=== PATIENT | female | born 1940 | race Caucasian/White ===

== ENCOUNTER 2023-09-23 08:12 | Emergency (ER) | payer MEDICARE, OTHER ==
[~2023-09-23] VITALS: Ht 167.6 cm; Wt 63.5 kg
[~2023-09-23 08:12] MED LIST: ADVIL100 MG PO; ADVIL200 MG PO; ASPIRIN325 MG PO; CHANTIX0.5 MG PO; CHANTIX1 EACH PO; D3 + K2 DOTS 11 EACH PO; DILAUDID2 MG PO; DILAUDID4 MG PO; DILTIA XT180 MG PO; DILTIAZEM 24HR240 M1 PO; DILTIAZEM ER240 MG; DULCOLAX10 MG RC; MELOXICAM7.5 MG PO; METOPROLOL TART25 MG; MILK OF MA400 MG/5 M; MIRALAX119 GM PO; MIRALAX17 GM PO; MOBIC7.5 MG PO; NORCO 5-325 TA1 EACH PO; NORCO 7.5-3251 EACH PO; SENNA8.6 MG PO; TOPROL XL100 MG PO; TOPROL XL25 MG PO; TRAZODONE HCL100 MG; TRAZODONE HCL100 MG PO; VITAMIN D1000 UNIT PO; VITAMIN D31000 UNIT PO; XARELTO10 MG PO; ZOFRAN4 MG
[2023-09-23 08:46] LABS: PH, VENOUS 7.411 (7.31-7.41)
[2023-09-23 08:48] LABS: BASOPHILS 0.7 % (0-2); EOSINOPHILS 2.9 % (0-6); HEMATOCRIT 38.3 % (35.0-50.0); HEMOGLOBIN 13.2 g/dL (12.0-18.0); LYMPHOCYTES 19.7 % (24-44); MCHC 34.6 g/dl (30-36); MONOCYTES 8.5 % (0-12); NEUTROPHILS 68.2 % (39-80); PLATELET COUNT 223 K/uL (140-440); RBC 3.68 M/ul (4.3-5.7)
[2023-09-23 09:28] LABS: ALBUMIN 3.8 g/dL (3.4-5.0); ANION GAP 14.7 (7-21); BILIRUBIN, TOTAL 0.7 ng/dL (0.2-1.0); BUN/CREATININE RATIO 9.75 (6.0-28.6); CALCIUM 9.1 mg/dL (8.5-10.1); CREATININE, SERUM 1.23 mg/dL (0.55-1.02); MAGNESIUM 1.6 mg/dL (1.8-2.4); POTASSIUM 3.7 mmol/L (3.5-5.1); PROTEIN, TOTAL 7.6 g/dL (6.4-8.2)
[2023-09-23 09:34] LABS: INFLUENZA B NAA NEGATIVE (NEGATIVE); RESPIRATORY SYNCYTIAL VIR NAA NEGATIVE (NEGATIVE)
[2023-09-23 13:40] VITALS: BP 114/72
--- NOTE | 2023-09-23 17:57 | EKG ---
[facility] [address] [facility] [place] [address] Signed Normal sinus rhythm Inferior infarct , age undetermined Abnormal ECG When compared with ECG of 23-SEP-2023 08:42, (Unconfirmed) premature ventricular complexes are no longer present Inferior infarct is now present Confirmed by CHRISTIANO HERNANDEZ MD ([id number]) on 09/23/2023 5:57:32 PM Electronically Signed By: CHRISTIANO HERNANDEZ 09/23/23 1757 PATIENT NAME: MARY CALLE Electrocardiogram DATE OF : 42 PHYSICIAN: CHRISTIANO HERNANDEZ REPORT #: [id number] REPORT IS CONFIDENTIAL AND NOT TO BE RELEASED WITHOUT AUTHORIZATION
--- NOTE | 2023-09-23 17:57 | EKG ---
[facility] [address] [facility] [place] [address] Signed Sinus rhythm with occasional premature ventricular complexes ST depression, consider subendocardial injury Nonspecific T wave abnormality Prolonged QT Abnormal ECG No previous ECGs available Confirmed by CHRISTIANO HRENANDEZ MD ([id number]) on 09/23/2023 5:57:21 PM Electronically Signed By: CHRISTIANO HERNANDEZ 09/23/23 1757 PATIENT NAME: MARY CALLE Electrocardiogram DATE OF : 42 PHYSICIAN: CHRISTIANO HERNANDEZ REPORT #: [id number] REPORT IS CONFIDENTIAL AND NOT TO BE RELEASED WITHOUT AUTHORIZATION
== END 2023-09-23 13:40 | disposition short-term general hospital (02) ==
LOC: ED 08:12
PROVIDERS: Emergency Medicine
DX: I21.4 Non-ST elevation (NSTEMI) myocardial infarction (principal); I11.0 Hypertensive heart disease with heart failure; I50.9 Heart failure, unspecified; F17.200 Nicotine dependence, unspecified, uncomplicated; Z88.8 Allergy status to other drugs, medicaments and biological substances; Z88.5 Allergy status to narcotic agent; Z79.899 Other long term (current) drug therapy; Z20.822 Contact with and (suspected) exposure to COVID-19
CPT/HCPCS: 36415; 71045; 71260; 80053; 82803; 83735; 83880; 84484; 85025; 85379; 87502; 93005; 93010; 99285-25; C9803; J1940; J3475; U0002

== ENCOUNTER 2025-05-07 07:30 | Inpatient (IN) | payer MEDICARE, OTHER ==
[~2025-05-07] VITALS: Ht 167.6 cm
[2025-05-07] MEDS ORDERED: ondansetron HCL 4 MG/2 ML VIAL IV ONE (08:00)
[2025-05-07] MEDS ORDERED: HYDROmorphone HCL 1 MG/ML SYR IV ONE (08:00)
[2025-05-07 08:11] LABS: BASOPHILS 0.4 % (0.1-1.2); EOSINOPHILS 1.6 % (0.7-5.8); HEMATOCRIT 34.9 % (34.1-44.9); HEMOGLOBIN 12.4 g/dL (11.2-15.7); LYMPHOCYTES 23.6 % (19.3-51.7); MCH 35.4 PG (25.6-32.2); MCHC 35.5 g/dL (32.2-35.5); MCV 99.7 fL (79.4-94.8); MONOCYTES 13.8 % (4.7-12.5); NEUTROPHILS 60.4 % (34.0-71.1); PLATELET COUNT 219 K/uL (182-369)
[2025-05-07] MEDS ORDERED: CLOPIDOGREL75 MG PO (08:19)
[2025-05-07] MEDS ORDERED: AMLODIPINE BESYL5 MG PO (08:19)
[2025-05-07] MEDS ORDERED: ATORVASTATIN CA40 MG PO (08:19)
[2025-05-07] MEDS ORDERED: METOPROLOL SUCC25 MG PO (08:19)
[2025-05-07 08:28] LABS: ALBUMIN 3.8 g/dL (3.4-5.0); ALBUMIN/GLOBULIN RATIO 0.97 (1.1-2.4); ANION GAP 11.2 (7-21); BUN/CREATININE RATIO 13.07 (6.0-28.6); CALCIUM 9.2 mg/dL (8.5-10.1); CREATININE, SERUM 1.3 mg/dL (0.55-1.02); POTASSIUM 4.2 mmol/L (3.5-5.1); PROTEIN, TOTAL 7.7 g/dL (6.4-8.2)
[2025-05-07] MEDS ORDERED: ACETAMINOPHEN 325 MG TAB PO PRN (11:45)
[2025-05-07] MEDS ORDERED: SODIUM CHLORIDE 0.9% 1,000 ML IV SCH (11:45)
[2025-05-07] MEDS ORDERED: ondansetron HCL 4 MG/2 ML VIAL IV PRN (11:45)
[2025-05-07] MEDS ORDERED: PHARMACY RENAL DOSE ADJUSTMENT 1 DOSE MISC PO SCH (12:00)
[2025-05-07] MEDS ORDERED: OXYCODONE HCL 5 MG TAB PO PRN (12:00)
--- NOTE | 2025-05-07 12:22 | EKG ---
[facility] [address] [facility] [place] [address] Signed Normal sinus rhythm Normal ECG When compared with ECG of 23-SEP-2023 11:34, Criteria for Inferior infarct are no longer present Non-specific change in ST segment in Anterior leads T wave inversion no longer evident in Inferior leads Nonspecific T wave abnormality, improved in Anterolateral leads Confirmed by Guerline Oquendo MD () on 05/07/2025 12:22:31 PM Electronically Signed By: GUERLINE OQUENDO MD 05/07/25 1222 PATIENT NAME: MARY CALLE Electrocardiogram DATE OF : 42 PHYSICIAN: GUERLINE OQUENDO MD REPORT #: [id number] REPORT IS CONFIDENTIAL AND NOT TO BE RELEASED WITHOUT AUTHORIZATION
[2025-05-07 12:43] VITALS: BP 165/41
[2025-05-07] MEDS ORDERED: KETOROLAC TROMETHAMINE 15 MG/ML VIAL IV PRN (12:45)
--- NOTE | 2025-05-07 13:19 | NUR ---
PT TO [facility] VIA [facility] STAFF TRANSFER TO BED. PT ORIENTED TO THE ROOM, BED CONTROLS, AND ROUTINE. DR OQUENDO IN TO DISCUSS PAIN CONTROL PLAN ALL QUESTIONS ANSWERED. LUNCH TRAY PROVIDED PT EATS HEARTILY AGREES SHE IS SATISFIED AND COMFORTABLE AT THIS TIME. CALL LIGHT AND FRESH H20 IN REACH.
--- NOTE | 2025-05-07 13:26 | NUR ---
I/S INTRODUCED SCD IN PLACE
--- NOTE | 2025-05-07 13:31 | NUR ---
UR CLINICAL REVIEW: 2 MN FOR VERSALUS-PER HOT CELL TECHNICIAN MEETS OBS FOR PAIN MANAGEMENT FOR RIB FX MEDICARE OBS 05/07/25 @ 1148 ORDER MATCHES REG NO AUTH REQUIRED PER MEDICARE GUIDELINES DISCHARGE DISPO PENDING FURTHER PT/OT EVAL 05/08/25
[2025-05-07] MEDS ORDERED: HYDROmorphone HCL 2 MG TAB PO PRN (13:45)
--- NOTE | 2025-05-07 13:46 | NUR ---
INTO SEE PATIENT. PERSONAL HEALTH INFORMATION REVIEWED. PATIENT LIVES IN A HOUSE WITH SON AND DAUGHTER IN [place]. 5 STEPS INTO THE HOME AND IT IS A SPLIT LEVEL HOME. PATIENT DENIES ANY TROUBLE DOING THE STEPS. SHE USES A CANE AT BASELINE. NO OXYGEN OR CPAP AT HOME. DOES NOT DRIVE. FAMILY TO PICK HER UP WHEN SHES MEDICALLY CLEARED. DENIES ANY DIFFCULTY PAYING UTLITIES OR OBTAINING FOOD. NO FUTHER CM NEEDS AT THIS TIME.
--- NOTE | 2025-05-07 14:09 | NUR ---
PT REPORTED TO HAVE C/O PAIN. THIS RN PROVIDED 1MG DILAUDID PO FOR PAIN RELIEF. PT STATED REPEATEDLY "I DON'T KNOW" TO QUESTION REGARDING ACCEPTABLE LEVEL OF PAIN AND CURRENT PAIN RATING.
--- NOTE | 2025-05-07 14:46 | NUR ---
PT RESTING EYES CLOSED
[2025-05-07 14:47] VITALS: BP 165/41
--- NOTE | 2025-05-07 14:52 | NUR ---
P/T IN TO WORK WITH PT.
--- NOTE | 2025-05-07 15:09 | NUR ---
PT NOT AVAILABLE FOR VISIT. PROVIDED PRAYER.
[2025-05-07] MEDS ORDERED: ALBUTEROL SULFATE 0.083% 3 ML VIAL INH PRN (16:00)
--- NOTE | 2025-05-07 16:07 | NUR ---
PT REQUESTS TO MOVE FROM CHAIR TO THE BED. DOES NOT ACCOMPLISH NWB WELL, EVEN USING THE WALKER. PT ASSISTED TO GET COMFORTABLE. PAIN REGIMEN DISCUSSED PT NOTIFIED HER OF WHEN NEXT MED IS AVAILABLE. SHE IS UNABLE TO READ THE BOARD WITH WRITTEN REMINDER. CALL LIGHT AND NEEDED ITEMS IN REACH
[2025-05-07] MEDS ORDERED: PRESERVISION A1 EAC3 PO (16:10)
[2025-05-07] MEDS ORDERED: ADULT LOW DOSE81 MG PO (16:10)
--- NOTE | 2025-05-07 16:55 | NUR ---
medications reconciled using pharmacy records and patient interview
--- NOTE | 2025-05-07 17:25 | NUR ---
PT REPOSITIONED UP IN BED FOR EVENING MEAL. REVIEWED WITH HER WHEN NEXT PAIN MED IS AVAILABLE. SHE AGREES SHE IS PRETTY COMFORTABLE UNTIL SHE HAS TO MOVE THEN THE PAIN IS TERRIBLE.
[2025-05-07 18:08] VITALS: BP 141/51
--- NOTE | 2025-05-07 18:10 | NUR ---
PATIENT IN BED AT THIS TIME. VITALS AND I&O'S DONE AND CHARTED. CALL LIGHT IN REACH. NO FURTHER NEEDS AT THIS TIME.
[2025-05-07 18:47] VITALS: BP 141/51
--- NOTE | 2025-05-07 19:24 | NUR ---
REPORT RECEIVED FROM DAY SHIFT RN. PT LYING IN BED ALERT AND ORIENTED. DENIES NEEDS. WHITE BOARD UPDATED. CALL LIGHT IN REACH.
[2025-05-07] MEDS ORDERED: MELATONIN 3 MG TAB PO PRN (21:00)
[2025-05-07] MEDS ORDERED: SENNOSIDES/DOCUSATE 1 EA TAB PO SCH (21:00)
--- NOTE | 2025-05-07 21:00 | NUR ---
IV PUMP ALARMING, IVF INFUSION COMPLETE. IV SL WNL, GOOD BLOOD RETURN NOTED. 1PA WITH FWW TO PIVOT TO BSC FOR VOID. PROPERTIES SUPERVISOR SINTA IN ROOM. pt RATES PAIN 7-8/10 IN LEFT FOOT. PRIMARY RNS UPDATED.
[2025-05-07 21:05] VITALS: BP 145/66
[2025-05-07 21:08] VITALS: BP 145/66
--- NOTE | 2025-05-07 21:22 | NUR ---
EVENING ASSESSMENT COMPLETE. SCHEDULED MEDS ADMIN PER EMAR. PT REPORTS LEFT RIB PAIN 10/10 WITH MOVEMENT AND 0/10 AT REST. PRN FOR PAIN ADMIN PER EMAR. LUNGS DIMINISHED THROUGHOUT. SpO2 LOW 90'S. 2L/NC IN PLACE. LEFT FOOT IN BOOT. CMS INTACT. SCD IN PLACE ON RLE. PT DENIES QUESTIONS OR CONCERNS. CALL LIGHT IN REACH. BED ALARM FOR SAFETY.
[2025-05-07 23:02] LABS: ANION GAP 9.1 (7-21); BUN/CREATININE RATIO 14.04 (6.0-28.6); CALCIUM 8.3 mg/dL (8.5-10.1); CREATININE, SERUM 1.21 mg/dL (0.55-1.02); POTASSIUM 4.1 mmol/L (3.5-5.1)
--- NOTE | 2025-05-07 23:19 | NUR ---
PT RESTING IN BED WITH EYES CLOSED. RESPIRATIONS EVEN. SpO2 94% WITH 2L/NC IN PLACE. HR 50'S.
[2025-05-08] VITALS (11 sets, daily range): BP systolic 110–154; BP diastolic 31–66
--- NOTE | 2025-05-08 00:48 | NUR ---
CALL LIGHT ANSWERED. PT UP TO BSC WITH 1PA AND FWW. BACK TO BED. REPORTS LEFT SIDE PAIN 07/08. PRN FOR PAIN ADMIN PER EMAR. VS AND I&O OBTAINED. NO FURTHER NEEDS. CALL LIGHT IN REACH.
--- NOTE | 2025-05-08 02:40 | NUR ---
PT RESTING IN BED WITH EYES CLOSED. RESPIRATIONS EVEN. CALL LIGHT IN REACH.
--- NOTE | 2025-05-08 03:59 | NUR ---
PT AWAKE IN BED. NO C/O PAIN AT THIS TIME. SpO2 96% ON 2L/NC. HR 50'S. NO NEEDS. CALL LIGHT IN REACH.
[2025-05-08 05:20] LABS: BASOPHILS 0.3 % (0.1-1.2); EOSINOPHILS 2.5 % (0.7-5.8); HEMATOCRIT 29.5 % (34.1-44.9); HEMOGLOBIN 10.1 g/dL (11.2-15.7); LYMPHOCYTES 21.9 % (19.3-51.7); MCH 35.4 PG (25.6-32.2); MCHC 34.2 g/dL (32.2-35.5); MCV 103.5 fL (79.4-94.8); MONOCYTES 12.6 % (4.7-12.5); NEUTROPHILS 62.5 % (34.0-71.1); PLATELET COUNT 186 K/uL (182-369); RBC 2.85 M/uL (3.93-5.22)
[2025-05-08 05:38] LABS: ANION GAP 10.2 (7-21); BILIRUBIN, TOTAL 0.7 mg/dL (0.2-1.0); CALCIUM 8.5 mg/dL (8.5-10.1); CREATININE, SERUM 1.25 mg/dL (0.55-1.02); MAGNESIUM 1.8 mg/dL (1.8-2.4); PHOSPHORUS, INORGANIC 4.5 mg/dL (2.5-4.9); POTASSIUM 4.2 mmol/L (3.5-5.1)
--- NOTE | 2025-05-08 05:38 | NUR ---
LAB IN FOR MORNING DRAW. PT UP TO BSC WITH 1PA AND FWW TO VOID. GAIT STEADY. BACK TO BED, ROSIBEL FAIR. PT REPORTS LEFT RIB PAIN 05/08. PRN FOR PAIN ADMIN PER EMAR. VS AND I&O OBTAINED. NO FURTHER NEEDS. CALL LIGHT IN REACH.
--- NOTE | 2025-05-08 07:38 | NUR ---
Patient awake resting in bed, alert to self and place, no acute distress. Patient reports tolerable pain at rest. Patient is on 2L oxygen per nc, respirations non labored, sp02 95%. Patient denies needs, personal supplies and call light within reach.
[2025-05-08] MEDS ORDERED: SODIUM CHLORIDE 0.9% 1,000 ML IV SCH (07:45)
--- NOTE | 2025-05-08 09:38 | NUR ---
SPOKE WITH PATIENT REGARD PT RECOMMENDATION FOR SNF. STATES SHE IS AGREEABLE TO SNF. PATIENT CHOICES FOR SNF PROVIDED. STATES SHE HAS PREVIOUSLY BEEN TO [facility] AND PREFERS TO RETURN TO [facility] FOR [facility]F. DISCUSSED NEED FOR INPATIENT STAY FOR 3 MIDNIGHTS PRIOR TO DC. VERBALIZES UNDERSTANDING. UPDATED DR. OQUENDO ABOUT PATIENT AGREEANCE FOR SNF.
--- NOTE | 2025-05-08 09:50 | NUR ---
Admin 1mg dilaudid po at this time for reported 7/10 left rib pain.
--- NOTE | 2025-05-08 09:54 | NUR ---
CLINICALS FAXED TO [facility].
[2025-05-08] MEDS ORDERED: LIDOCAINE HCL 4% 1 EACH PATCH TD SCH (10:16)
--- NOTE | 2025-05-08 11:45 | NUR ---
Patient resting in bed, eyes closed, respirations even/non labored. SP02 95% on 2L oxygen per nc.
[2025-05-08] MEDS ORDERED: ALBUTEROL/IPRATROPIUM 3 ML NEB INH SCH (12:00)
--- NOTE | 2025-05-08 12:54 | NUR ---
Patient up to void, approx 200ml concentrated urine noted. Patient reports 6/10 left hip pain. Toradol 15mg iv admin at this time. Patient's oxygen is 93% on 2L oxygen. Patient denies sob, respirations non labored.
[2025-05-08 14:10] LABS: BUN/CREATININE RATIO 14.28 (6.0-28.6); CALCIUM 8.3 mg/dL (8.5-10.1); CREATININE, SERUM 1.19 mg/dL (0.55-1.02)
--- NOTE | 2025-05-08 17:48 | NUR ---
Patient in bed resting, eyes closed, respirations non labored. SP02 95% on 2L oxygen per nc, respirations non labored. Patient denies needs, call light within reach.
--- NOTE | 2025-05-08 18:16 | NUR ---
Admin dilaudid 1mg po for 7/10 left rib pain. SPO2 93% on 2L oxygen per nc, respirations non labored.
--- NOTE | 2025-05-08 19:17 | NUR ---
REPORT RECEIVED FROM DAY SHIFT RN. PT LYING IN BED ALERT AND ORIENTED. DENIES NEEDS. WHITE BOARD UPDATED. CALL LIGHT IN REACH.
[2025-05-08] MEDS ORDERED: LIDOCAINE PATCH REMOVAL 1 EA TD SCH (21:00)
--- NOTE | 2025-05-08 21:54 | NUR ---
EVENING ASSESSMENT COMPLETE. SCHEDULED MEDS ADMIN PER EMAR. PT REPORTS LEFT RIB PAIN 06/07. PRN FOR PAIN ADMIN PER EMAR. PT UP TO BSC WITH FWW AND 1PA TO VOID. PT ABLE TO DO OWN LIN CARE. BACK TO BED, ROSIBEL FAIR. PT REPORTS BILAT LEFT HEEL PAIN. WALKING BOOT REMOVED, PENCIL ERASER SIZE REDDENED AREA NOTED ON LEFT HEEL. AREA BLANCHABLE. ALEVYN PLACED. BOOT BACK IN PLACE. HEELS FLOATED. SCD TO RLE. VS AND I&O OBTAINED. PT DENIES FURTHER NEEDS. CALL LIGHT IN REACH.
[2025-05-09] VITALS (9 sets, daily range): BP systolic 123–160; BP diastolic 40–61
--- NOTE | 2025-05-09 00:01 | NUR ---
PT RESTING IN BED WITH EYES CLOSED. RESPIRATIONS EVEN. CALL LIGHT IN REACH.
--- NOTE | 2025-05-09 02:08 | NUR ---
PT UP TO BSC WITH DRIVER TRAINEE ASSIST. BACK TO BED. REPORTS LEFT RIB PAIN/LEFT HEEL PAIN 05/08. PRN FOR PAIN ADMIN PER EMAR. NO FURTHER NEEDS.
--- NOTE | 2025-05-09 03:47 | NUR ---
PT AWAKE IN BED. SpO2 99% ON 2L/NC. NO C/O PAIN AT THIS TIME. DENIES NEEDS. CALL LIGHT IN REACH.
[2025-05-09 05:36] LABS: BASOPHILS 0.2 % (0.1-1.2); EOSINOPHILS 0.9 % (0.7-5.8); HEMATOCRIT 30.5 % (34.1-44.9); HEMOGLOBIN 10.5 g/dL (11.2-15.7); LYMPHOCYTES 15.9 % (19.3-51.7); MCH 35.7 PG (25.6-32.2); MCHC 34.4 g/dL (32.2-35.5); MCV 103.7 fL (79.4-94.8); MONOCYTES 10.2 % (4.7-12.5); NEUTROPHILS 72.5 % (34.0-71.1); PLATELET COUNT 203 K/uL (182-369); RBC 2.94 M/uL (3.93-5.22)
[2025-05-09 05:50] LABS: ANION GAP 14.2 (7-21); BUN/CREATININE RATIO 12.5 (6.0-28.6); CALCIUM 8.9 mg/dL (8.5-10.1); CREATININE, SERUM 1.12 mg/dL (0.55-1.02); POTASSIUM 4.2 mmol/L (3.5-5.1)
--- NOTE | 2025-05-09 06:57 | NUR ---
PT REPORTS LEFT SIDE PAIN 05/08. PRN FOR PAIN ADMIN PER EMAR. NO FURTHER NEEDS. CALL LIGHT IN REACH.
--- NOTE | 2025-05-09 08:28 | NUR ---
HOURLY ROUNDING. PATIENT IS IN BED. ASKED PATIENT ABOUT SHOWERING TODAY. NURSE HAS BEEN NOTIFIED. NO REQUEST FROM PATIENT AT THIS TIME BOARD HAS BEEN UPDATED AND CALL LIGHT HAS BEEN PLACED WITHIN REACH
[2025-05-09] MEDS ORDERED: POLYETHYLENE GLYCOL 3350 1 PACKET PO SCH (09:00)
--- NOTE | 2025-05-09 09:00 | NUR ---
Spoke with Kristy. Discussed plan for her to go to a SNF. She is upset and stating she doesn't want to go. She has been at [facility] in the past and did not like it. I let her know I can send her to a different SNF out of town. She declines this as she feels this will be a burden to her children. She again is stating she does not want to go to a SNF. We then discussed if she is able to get out of bed. She denies. She also denies having money to pay for a CG. She knows she is unable to care for herself. Son works. Dr. Kramer in to assess pt and confirms she has several fractured ribs and is not able to care for herself. Pt is also not happy with the boot on her foot. Dr. Kramer let her know he will contact Dr. Macdonald to check if she can have it off intermitently. Pt prefers to go to [facility] after her visit with Dr. Kramer. She will need 2 more night IP stay to meet criteria.
[2025-05-09] MEDS ORDERED: ATORVASTATIN 40 MG TAB PO SCH (09:34)
[2025-05-09] MEDS ORDERED: CLOPIDOGREL BISULFATE 75 MG TAB PO SCH (09:34)
[2025-05-09] MEDS ORDERED: ASPIRIN 81 MG TABEC PO SCH (09:34)
[2025-05-09] MEDS ORDERED: METOPROLOL SUCCINATE 25 MG TABCR PO SCH (09:35)
[2025-05-09] MEDS ORDERED: AMLODIPINE BESYLATE 5 MG TAB PO SCH (09:35)
[2025-05-09] MEDS ORDERED: ENOXAPARIN SODIUM 40 MG/0.4 ML SYR SUB-Q SCH (09:41)
--- NOTE | 2025-05-09 10:00 | NUR ---
Per Dr. Kramer, PT needs to assess patient's boot for best fit.
--- NOTE | 2025-05-09 10:11 | NUR ---
VISITED DURING SPIRITUAL CARE ROUNDS. PT VISIBLY UNCOMFORTABLE, TREMBLING LIPS, SHAKEY BREATH. NORMA MCCLURE IN ROOM. SHORT VISIT TO OFFER STAMP MAKER VISIT. PT DECLINED OFFER OF STAMP MAKER VISIT, STATING SHE HAS "FALLEN AWAY" FROM THE [facility]. HALVER MACHINE OPERATOR PROVIDED SUPPORTIVE PRESENCE, PRAYER.
--- NOTE | 2025-05-09 10:14 | NUR ---
Patient awake sitting up in bed, alert and oriented x3, no acute distress. Patient reports increased pain with coughing, pt instructed to splint as need, she is able to demonstrate this independently. Patient is on 2L oxygen per nc, respiration non labored, sp02 93%. Patient has a boot to left foot, cms intact to LLE. Patient close to RN station, call light within reach.
--- NOTE | 2025-05-09 10:30 | NUR ---
HOURLY ROUNDING. PATIENT IS SITTING UP IN BED. NO NEEDS AT THIS TIME. DECLINED WARM BLANKET
[2025-05-09] MEDS ORDERED: IBUPROFEN 400 MG TAB PO PRN (11:00)
--- NOTE | 2025-05-09 11:41 | NUR ---
HOURLY [id number]. PATIENT IS IN RECLINER, LINENS HAVE BEEN CHANGED AND WARM BLANKET WAS GIVEN. PATIENT WAS GIVEN A CHOCOLATE ENSURE. ML OF ENSURE HAS BEEN DOCUMENTED ON OUTPUT SHEET. CALL LIGHT PLACED WITHIN REACH
--- NOTE | 2025-05-09 11:45 | NUR ---
Per Pt, soft cushion placed under the inside foam in boot to prevent rubbing. Per their reccomendation, pt may benefit from bigger boot as her toes are near end of boot. Patient reports boot is tolerable and fit feels good.
--- NOTE | 2025-05-09 12:54 | NUR ---
Patient resting in bed, alert and oriented x3, no acute distress. Patient reports 7/10 left rib pain. Ibuprofen 400mg po and dilaudid 1mg po admin at this time. Patient is on 2L oxygen per nc, sp02 94%, respirations non labored. Patient denies needs at this time. Call light within reach.
--- NOTE | 2025-05-09 14:01 | NUR ---
Matilda Conway at [facility] and asked if she received the chart and if they will have a bed open by Wednesday.
--- NOTE | 2025-05-09 14:12 | NUR ---
I contacted [facility], they are checking if they will have a bed open on Wed. and will let me know.
--- NOTE | 2025-05-09 16:06 | NUR ---
Boot to left foot replaced for best fit per PT recommendation. Medium sized boot replaced for a large size. Patient's toes are no longer rubbing. Patient gave verbal consent to sign form for boot. Pt is visually impaired. .
--- NOTE | 2025-05-09 16:23 | NUR ---
Patient reports he is feeling well, no acute distress. Patient reports 3/10 abdominal pain. Patient provided with a snack at this time. Vital signs stable.
--- NOTE | 2025-05-09 17:56 | NUR ---
HOURLY ROUNDING. PATIENT REFUSED SHOWER AFTER BEING OFFERED I SET UP TOWELS AND SUPLLIED NEEDED FOR THE SHOWER. CALL LIGHT HAS BEEN PLACED WITHIN REACH. NO REQUEST FROM PATIENT AT THIS TIME
--- NOTE | 2025-05-09 19:41 | NUR ---
REPORT RECEIVED FROM DIANNE RN. PATIENT RESTING IN BED WITH FAMILY AT BEDSIDE. CPOX AT BEDSIDE, PATIENT BOOSTED IN BED WITH ASSISTANCE OF AMER[employer]DIAN STUDIES PROFESSOR. PATIENT DENIES FURTHER NEEDS, LEFT LEG IN BOOT. CALL LIGHT IN REACH.
--- NOTE | 2025-05-09 19:48 | NUR ---
PT NEEDED TO USE BATHROOM. WORKERS' COMPENSATION MAGISTRATE 1PA WITH FWW TO BSC. PT VOIDED AND ASSISTED BACK TO BED. PT STATES NO FURTHER NEEDS AT THIS TIME. CALL LIGHT WITHIN REACH.
[2025-05-09] MEDS ORDERED: TRAZODONE HCL 100 MG TAB PO SCH (21:00)
--- NOTE | 2025-05-09 21:14 | NUR ---
SAUTE CHEF OBTAINED VITALS AND I&O. PT STATES NO NEEDS AT THIS TIME. CALL LIGHT WITHIN REACH.
--- NOTE | 2025-05-09 21:30 | NUR ---
PATIENT ASSESSMENT COMPLETE. SCHEDULED MEDS ADMINISTERED PER ORDER. PATIENT REPORT 4/10 PAIN AT THIS TIME. BOOT IN PLACE ON LEFT LEG. SHE DENIES ANY NEEDS, CALL LIGHT IN REACH.
--- NOTE | 2025-05-09 23:20 | NUR ---
ROUNDED ON PATIENT, PATIENT WOKE TO RN ENTERING ROOM, REPORTING THAT SHE HAS BEEN NAUSEOUS. PATIENT OFFERED PRN NAUSEA MEDICATION WHICH SHE DECLINED AT THIS TIME. SHE DENIES FURTHER NEEDS, CALL LIGHT IN REACH
[2025-05-10] VITALS (9 sets, daily range): BP systolic 112–136; BP diastolic 43–56
--- NOTE | 2025-05-10 03:29 | NUR ---
CALL LIGHT ANSWERED. PATIENT UP TO BSC USING FWW AND X1 ASSIST. VOIDED, AND BACK TO BED WITHOUT DIFFICULTY. BOOSTED AND REPOSITIONED IN BED. DENIES ANY OTHER NEEDS AT THIS TIME. CALL LIGHT IN REACH
--- NOTE | 2025-05-10 05:42 | NUR ---
SUEDING AND BUFFING MACHINE OPERATOR OBTAINED VITALS AND I&O. PT STATES NO NEEDS AT THIS TIME. CALL LIGHT WITHIN REACH.
[2025-05-10 05:43] LABS: BASOPHILS 0.2 % (0.1-1.2); EOSINOPHILS 1.1 % (0.7-5.8); HEMATOCRIT 29.6 % (34.1-44.9); HEMOGLOBIN 10.2 g/dL (11.2-15.7); LYMPHOCYTES 13.1 % (19.3-51.7); MCH 35.7 PG (25.6-32.2); MCHC 34.5 g/dL (32.2-35.5); MCV 103.5 fL (79.4-94.8); MONOCYTES 13.6 % (4.7-12.5); NEUTROPHILS 71.6 % (34.0-71.1); PLATELET COUNT 209 K/uL (182-369); RBC 2.86 M/uL (3.93-5.22)
[2025-05-10 05:54] LABS: ANION GAP 11.3 (7-21); BUN/CREATININE RATIO 14.42 (6.0-28.6); CALCIUM 8.9 mg/dL (8.5-10.1); CREATININE, SERUM 1.04 mg/dL (0.55-1.02); POTASSIUM 4.3 mmol/L (3.5-5.1)
--- NOTE | 2025-05-10 07:09 | NUR ---
REPORT RECEIVED FROM MEDICAL CLAIMS REPRESENTATIVE RN FIOR. PATIENT IS LYING IN BED WITH HOB ELEVATED. PATIENT WITH EYES OPEN AND RESPIRATIONS ARE EVEN AND UNLABORED. PATIENT IS REQUESTING PAIN MEDICATION AT THIS TIME. PATIENT STATED NO FURTHER NEEDS AT THIS TIME. CALL LIGHT AND PERSONAL BELONGINGS ARE WITHIN REACH.
--- NOTE | 2025-05-10 07:55 | NUR ---
0900 MEDICATIONS ADMINISTERED PER THE EMAR. PATIENT REPOSITIONED IN BED. HOB ELEVATED. PATIENT REMAINS ON 1 L NC WITH THE CPOX AT BEDSIDE. PATIENT STATED NO FURTHER NEEDS AT THIS TIME. CALL LIGHT AND PERSONAL BELONGINGS ARE WITHIN REACH.
--- NOTE | 2025-05-10 08:49 | NUR ---
PATIENT IS LYING IN BED WITH HOB ELEVATED. TEODORO BRENNAN IS IN THE ROOM AT THIS TIME. PATIENT REMAINS ON ROOM AIR AT 89%. PATIENT WITH THE CPOX AT BEDSIDE. PATIENT STATED NO FURTHER NEEDS AT THIS TIME. CALL LIGHT AND PERSONAL BELONGINGS ARE WITHIN REACH.
--- NOTE | 2025-05-10 08:52 | NUR ---
HOURLY ROUNDING. PATIENT REPORTED NOT HAVING AN APETITE. PATIENT REFUSED SHOWER WHEN OFFERED. ENSURE WAS GIVEN TO PATIENT. CALL LIGHT PLACED WITHIN REACH. BOARD HAS BEEN UPDATED
[2025-05-10] MEDS ORDERED: CYANOCOBALAMIN 1,000 MCG TAB PO SCH (09:00)
--- NOTE | 2025-05-10 09:45 | NUR ---
PATIENT IS LYING IN BED WITH HOB ELEVATED. PATIENT IS ALERT AND ORIENTED. LAST BM WAS 05/07/25. BOOT IN PLACE OF THE LEFT FOOT. FULL ASSESSMENT COMPLETE AND DOCUMENTED IN THE CHART. PATIENT IS A SBA WITH THE FWW. PT AND OT ARE ORDERED. NON-WEIGHT BEARING STATUS. MURMUR HEARD ON CARDIAC AUSCULTATION. RADIAL AND PEDAL PULSES ARE STRONG BILATERALLY. CAPILLARY REFILL IN THE UPPER AND LOWER EXTREMITIES IS LESS THAN 3 SECONDS. NO EDEMA NOTED. SENSATION INTACT WITH NO COMPLAINTS OF NUMBNESS OR TINGLING. PATIENT WITH FLAT AFFECT. PATIENT IS ON A REGULAR DIET WITH ACTIVE BOWEL TONES IN ALL FOUR QUADRANTS. IV SITE FLUSHED WITH 10 ML NORMAL SALINE AND IS SALINE LOCKED. IV DRESSING IS CLEAN, DRY, AND INTACT. PATIENT IS ON ROOM AIR WITH THE CPOX AT BEDSIDE. PATIENT REPORTS INCREASED PAIN WITH DEEP BREATHS. LUNG SOUNDS ARE CLEAR THROUGHOUT. PATENT WITH NO COMPLAINTS OF SOB. SCATTERED BRUISING NOTED. SCAB NOTED TO THE LEFT ELBOW. ALEVYN ON THE LEFT GREAT TOE NOTED AND IS SLEAN, DRY, AND INTACT. PATIENT PAIN IS A 2/10 ON THE LEFT SIDE OF RIBS. PATIENT UNABLE TO RATE PAIN FROM 0-10 BUT REPORTS IT IS BETTER THAN THIS MORNING. PATIENT STATED NO FURTHER NEEDS AT THIS TIME. CALL LIGHT AND PERSONAL BELONGINGS ARE WITHIN REACH.
--- NOTE | 2025-05-10 10:26 | NUR ---
PATIENT IS LYING IN BED WITH HOB ELEVATED. PATIENT WITH EYES CLOSED AND RESPIRATIONS ARE EVEN AND UNLABORED. CALL LIGHT AND PERSONAL BELONGINGS ARE WITHIN REACH.
--- NOTE | 2025-05-10 10:50 | NUR ---
Spoke with Kristy. She plans on dc to [facility] tomorrow. She cont. to have painful ribs and difficulty moving. She would like to go per van transport, but would like me to call her son. He gets off work this afternoon.
--- NOTE | 2025-05-10 11:03 | NUR ---
PATIENT IS LYING IN BED WITH HOB ELEVATED. PATIENT RATED PAIN 5/10 IN THE LEFT RIBS. PATIENT IS REQUESTING SOMETHING FOR PAIN AT THIS TIME. THIS RN AND TRAUMA RN ROUDED ON THE PATIENT AT THIS TIME. PATIENT EDUCATED ON ACCAPELLA USE. PATIENT EXPRESSED UNDERSTANDING. PATIENT IS ON ROOM AIR WITH THE CPOX AT BEDSIDE. PATIENT STATED NO FURTHER NEEDS AT THIS TIME. CALL LIGHT AND PERSONAL BELONGINGS ARE WITHIN REACH.
--- NOTE | 2025-05-10 11:33 | NUR ---
Trauma Rounds: Patient resting in bed. Patient's concern was pain. Primary in the room and responded to the concern. Patient reports the boot was more comfortable. Encouraged the patient to use her cornet to help prevent pulmonary complications. No other needs stated at this time.
--- NOTE | 2025-05-10 11:50 | NUR ---
PATIENT WORKING WITH PHYSICAL THERAPY AT THIS TIME. PATIENT GOT TO THE COMMODE AND VOID 250 ML DARK YELLOW URINE. PATIENT TOLERATED WELL. PATIENT LINENS CHANGED AT THIS TIME. PATIENT THEN TRANSFERRED BACK TO BED. PATIENT IS REQUESTING SOMETHING FOR PAIN. PATIENT WITH THE CPOX AT BEDSIDE. PATENT STATED NO FURTHER NEEDS AT THIS TIME. CALL LIGHT AND PERSONAL BELONGINGS ARE WITHIN REACH.
--- NOTE | 2025-05-10 12:20 | NUR ---
PATIENT IS LYING IN BED WITH HOB ELEVATED. PATIENT WITH EYES OPEN AND RESPIRATIONS ARE EVEN AND UNLABORED. PATENT IS ON ROOM AIR WITH THE CPOX AT BEDSIDE. PATIENT STATED NO FURTHER NEEDS AT THIS TIME. CALL LIGHT AND PERSONAL BELONGINGS ARE WITHIN REACH.
--- NOTE | 2025-05-10 13:07 | NUR ---
HOURLY ROUNDING. PATIENT IS IN BED. IM ENCOURAGING FLUIDS. REFRESHED AN ENSURE FOR PATIENT. PATIENT IS REFUSING A SHOWER AND REFUSING ADL'S- CALL LIGHT PLACED WITHIN REACH. NO REQUEST FROM PATIENT AT THIS TIME
--- NOTE | 2025-05-10 13:40 | NUR ---
PATIENT IS LYING IN BED WITH HOB ELEVATED. PATIENT WITH EYES CLOSED AND RESPIRATIONS ARE EVEN AND UNLABORED. CPOX AT BEDSIDE. CALL LIGHT AND PERSONAL BELONGINGS ARE WITHIN REACH.
--- NOTE | 2025-05-10 14:25 | NUR ---
PATIENT IS LYING IN BED WITH HOB ELEVATED. PATIENT WITH EYES OPEN AND RESPIRATIONS ARE EVEN AND UNLABORED. PATIENT IS ALERT AND ORIENTED TIMES FOUR. PATIENT WITH A MURMUR ON CARDIAC AUSCULTATION. IV SITE FLUSHED WITH 10 ML NORMAL SALINE AND IS SALINE LOCKED. IV DRESSING IS CLEAN, DRY, AND INTACT. PATIENT STATED PAIN IS A 4/10 IN THE LEFT SIDE OF RIBS. PATIENT IS NOT REQUESTING ANYTHING FOR PAIN AT THIS TIME. PATIENT WITH THE CPOX AT BEDSIDE AND REMAINS ON ROOM AIR. PATIENT STATED NO FURTHER NEEDS AT THIS TIME. CALL LIGHT AND PERSONAL BELONGINGS ARE WITHIN REACH.
--- NOTE | 2025-05-10 15:00 | NUR ---
Spoke with pts son. Discussed transport to [facility]. I will schedule a wc van for her comfort for 11:00 am tomorrow. I contacted [facility] and they will put a wc out for the van to pu. Gave son infor on belongings pt will need at [facility] during her stay. He will be here in the am and follow pt out to [facility].
--- NOTE | 2025-05-10 15:10 | NUR ---
PATIENT IS LYING IN BED WITH EYES CLOSED AND RESPIRATIONS ARE EVEN AND UNLABORED. PATIENT IS ON ROOM AIR AND THE CPOX IS AT BEDSIDE. CALL LIGHT AND PERSONAL BELONGINGS ARE WITHIN REACH.
--- NOTE | 2025-05-10 16:26 | NUR ---
PANKAJ EASTMAN ASSISTED PATIENT TO THE BEDSIDE COMMODE AND VOID 220 ML OF YELLOW URINE. PATIENT IS BACK IN BED. PATIENT IS ON ROOM AIR WITH THE CPOX AT BEDSIDE. PATIENT STATED NO NEEDS AT THIS TIME. CALL LIGHT AND PERSONAL BELONGINGS ARE WITHIN REACH.
--- NOTE | 2025-05-10 17:04 | NUR ---
PRN PAIN MEDICATION ADMINISTERED PER THE EMAR. RT SHALA IN THE ROOM AND FINISHED A BREATHING TREATMENT. PATIENT DID THE ACCAPELLA TEN TIMES WITH THIS RN IN THE ROOM. VITAL SIGNS TAKEN AND DOCUMENTED IN THE CHART. PATIENT STATED NO FURTHER NEEDS AT THIS TIME. CALL LIGHT AND PERSONAL BELONGINGS ARE WITHIN REACH.
--- NOTE | 2025-05-10 17:58 | NUR ---
PATIENT IN BED AT THIS TIME. FOOD TESTER CHARTED I&O'S, NORMA ESPOSITO CHARTED VITALS. CALL LIGHT WITHIN REACH, NO FURTHER NEEDS.
--- NOTE | 2025-05-10 18:01 | NUR ---
SHALA, RT NOTIFIED OF PATIENT BEING 84-87% ON ROOM AIR. RT STATED TO PUT HER ON A LITER OF OXYGEN VIA NC AT THIS TIME. CALL ENDED. THIS RN PLACED PATIENT ON 1 L NC AT THIS TIME. PATIENT STATED NO FURTHER NEEDS AT THIS TIME. CPOX AT BEDSIDE. CALL LIGHT AND PERSONAL BELONGINGS ARE WITHIN REACH. SCD REMAINS ON THE RIGHT LEG WITH THE BOOT ON THE LEFT FOOT.
--- NOTE | 2025-05-10 18:41 | NUR ---
PATIENT IN BED AT THIS TIME. THIS PARTS COUNTERMAN OFFERED SHOWER TO PATIENT, PATIENT REFUSED BED BATH AND A SHOWER. CALL LIGHT WITHIN REACH, NO FURTHER NEEDS.
--- NOTE | 2025-05-10 19:23 | NUR ---
REPORT RECEIVED FROM NORMA ESPOSITO. PATIENT RESTING WITH EYES CLOSED, RESPIRATIONS EVEN AND UNLABORED. WEARING NC 1L, CPOX AT BEDSIDE. PERSONAL BELONGINGS ARE WITHIN REACH, NO NEEDS IDENTIFIED, CALL LIGHT IN REACH
--- NOTE | 2025-05-10 20:43 | NUR ---
COOPERATIVE EDUCATION COORDINATOR OBTAINED VITALS AND I&O. PT STATES NO NEEDS AT THIS TIME. CALL LIGHT WITHIN REACH.
--- NOTE | 2025-05-10 21:05 | NUR ---
ASSESSMENT COMPLETED, NO BRUISING OR DISCOLORATION NOTED ON LEFT FOOT. ALYVEN IN PLACE AND INTACT ON LEFT BIG TOE FOR COMFORT. 2+ PEDAL PULSES BILATERALLY. PATIENT REPORTS 4/10 PAIN, SCHEDULED MEDICATIONS ADMINISTERED PER ORDER. BOOSTED AND REPOSITIONED IN BED PER REQUEST. BOOT REMAINS IN PLACE ON LEFT LEG. SCD IN PLACE ON RIGHT LEG. NO FURTHER NEEDS, CALL LIGHT IN REACH.
--- NOTE | 2025-05-11 00:14 | NUR ---
ROUNDED ON PATIENT, PATIENT RESTING WITH EYES CLOSED, NC IN PLACE AT 1L. RESPIRATIONS EVEN AND UNLABORED. SCD IN PLACE, BOOT IN PLACE ON LEFT LEG. NO NEEDS IDENTIFIED, CALL LIGHT IN REACH.
--- NOTE | 2025-05-11 02:49 | NUR ---
ROUNDED ON PATIENT, PATIENT RESTING WITH EYES CLOSED, RESPIRATIONS EVEN AND UNLABORED. NO NEEDS IDENTIFIED, CALL LIGHT IN REACH.
--- NOTE | 2025-05-11 03:38 | NUR ---
PT NEEDED TO USE BATHROOM. PRINT SHOP CHIEF CLERK 1PA WITH FWW TO BSC. PT VOIDED AND ASSISTED BACK TO BED. PT REQUESTING PAIN MED. ADVERTISING INTERN NOTIFED. PT STATES NO FURTHER NEEDS AT THIS TIME. CALL LIGHT WITHIN REACH.
--- NOTE | 2025-05-11 03:51 | NUR ---
PRN PAIN MEDICATION GIVEN FOR 8/10 PAIN IN PATIENT RIBS. FRESH WATER PROVIDED FOR PATIENT. SHE DENIES ANY OTHER NEEDS, RESPIRATIONS ARE EVEN AND UNLABORED. NO NEEDS ARE IDENTIFIED, CALL LIGHT IN REACH.
--- NOTE | 2025-05-11 05:15 | NUR ---
TC TO DR. HOSKINS TO INFORM OF 150ML OUTPUT FOR PATIENT THROUGHOUT THE SHIFT. NEW ORDERS RECEIVED.
[2025-05-11 05:23] LABS: BASOPHILS 0.3 % (0.1-1.2); EOSINOPHILS 1.2 % (0.7-5.8); HEMATOCRIT 29.9 % (34.1-44.9); HEMOGLOBIN 10.1 g/dL (11.2-15.7); LYMPHOCYTES 16.6 % (19.3-51.7); MCH 35.6 PG (25.6-32.2); MCHC 33.8 g/dL (32.2-35.5); MCV 105.3 fL (79.4-94.8); MONOCYTES 15.3 % (4.7-12.5); NEUTROPHILS 66.5 % (34.0-71.1); PLATELET COUNT 199 K/uL (182-369); RBC 2.84 M/uL (3.93-5.22)
[2025-05-11 05:28] VITALS: BP 142/47
[2025-05-11 05:29] VITALS: BP 142/47
--- NOTE | 2025-05-11 05:30 | NUR ---
VS OBTAINED AND RECORDED. PATIENT UP TO BSC TO VOID. VOIDED 300ML, BLADDER SCAN POST VOID PER REQUEST OF DR. HOSKINS. 20ML NOTED VIA BLADDER SCAN. PATIENT SETTLED INTO BED, CPOX AT BEDSIDE, 1L O2 VIA NC. PATIENT DECLINES ANY FURTHER NEEDS AT THIS TIME. CALL LIGHT IN REACH.
[2025-05-11 05:35] LABS: ANION GAP 11.6 (7-21); BUN/CREATININE RATIO 11.4 (6.0-28.6); CALCIUM 8.6 mg/dL (8.5-10.1); CREATININE, SERUM 1.14 mg/dL (0.55-1.02); POTASSIUM 4.6 mmol/L (3.5-5.1)
--- NOTE | 2025-05-11 07:03 | NUR ---
REPORT RECEIVED FROM OUTREACH AND EDUCATION SOCIAL WORKER NORMA CHILDRESS. PATIENT IS LYING IN BED WITH HOB ELEVATED. PATIENT WITH EYES OPEN AND RESPIRATIONS ARE EVEN AND UNLABORED. PATIENT WITH 1L NC IN PLACE WITH THE CPOX AT BEDSIDE. CALL LIGHT AND PERSONAL BELONGINGS ARE WITHIN REACH.
--- NOTE | 2025-05-11 08:00 | NUR ---
PATIENT IN CHAIR AT THIS TIME. LOCK TENDER ASSISTED HER TO BATHROOM AND THEN TO CHAIR. CALL LIGHT WITHIN REACH, NO FURTHER NEEDS AT THIS TIME.
--- NOTE | 2025-05-11 08:31 | NUR ---
0900 MEDICATIONS ADMINISTERED PER THE EMAR. PRN DILAUDID ADMINISTERED FOR PAIN OF 6/10 IN THE LEFT SIDE RIBS. PATIENT IS SITTING UPRIGHT IN THE CHART. NC IN PLACE WITH THE CPOX AT BEDSIDE. PATIENT SON IS AT THE BEDSIDE. TV IS ON. PATIENT REFUSED BREAKFAST TRAY AT THIS TIME. PATIENT STATED NO FURTHER NEEDS AT THIS TIME. CALL LIGHT AND PERSONAL BELONGINGS ARE WITHIN REACH.
[2025-05-11 08:56] VITALS: BP 138/48
--- NOTE | 2025-05-11 09:01 | NUR ---
ARMIN IS IN HER CHAIR AT THIS TIME, SHE REFUSED BREAKFAST, A SHOWER AND A BED BATH. I PROVIDED BED BATH WIPES AND A NEW GOWN, AND TOLD HER SHE CAN DO IT WHEN SHE IS READY AND TO LET ME KNOW IF SHE NEEDS HELP. TANK HOOP BENDER CHARTED VITALS AND I&O'S CALL LIGHT WITH IN REACH, SON IS IN ROOM AND NOTHING ELSE NEEDED AT THIS TIME.
[2025-05-11 09:17] VITALS: BP 138/48
[2025-05-11] MEDS ORDERED: HEALTHYLAX17 GM PO (09:37)
[2025-05-11] MEDS ORDERED: STIMULANT LAXA1 EACH PO (09:37)
[2025-05-11] MEDS ORDERED: VITAMIN B-121000 MCG PO (09:38)
[2025-05-11] MEDS ORDERED: LIDOCAINE PAIN1 EACH TD (09:38)
[2025-05-11] MEDS ORDERED: HYDROMORPHONE HC2 MG PO (09:38)
[2025-05-11] MEDS ORDERED: IPRAT-ALBUT 0.5-3 ML INH (09:39)
[2025-05-11] MEDS ORDERED: ALBUTEROL2.5 MG/3 M INH (09:39)
[2025-05-11] MEDS ORDERED: MAGNESIUM CITR296 ML PO (09:40)
--- NOTE | 2025-05-11 09:40 | NUR ---
NOTIFIED OF PATIENT FEELING CONSTIPATED. STATED HE HAD ALREADY SPOKE WITH THE PATIENT AND HAS ORDERED MAG CITRATE FOR WHEN SHE ARRIVES TO THE FACILITY. NO NEW ORDERS AT THIS TIME. PATIENT IS SITTING UPRIGHT IN THE CHAIR WITH HER SON NEXT TO HER. FULL ASSESSMENT COMPLETE AND DOCUMENTED IN THE CHART. PATIENT IS ALERT AND ORIENTED TIMES FOUR. PATIENT LAST BM WAS 05/07/25. PATIENT REPORTS PAIN IS 5/10 IN THE LEFT SIDED RIBS. PATIENT IS NOT REQUESTING ANYTHING FOR PAIN AT THIS TIME. LIDOCAINE PATCH REMAINS ON THE LEFT SIDE OF BACK/RIBS. PATIENT IS A SBA WITH THE FWW. PT/OT IS ORDERED. PATIENT TO TRY TO BE NON-WEIGHT BEARING. MURMUR HEARD ON CARDIAC AUSCULTATION. RADIAL PULSES AND R PEDAL PULSE IS STRONG. BOOT REMAINS ON THE LEFT FOOT. CAPILLARY REFILL IN THE UPPER AND LOWER EXTREMITIES IS LESS THAN 3 SECONDS. NO EDEMA NOTED. SENSATION INTACT WITH NO COMPLAINTS OF NUMBNESS OR TINGLING. PATIENT IS ON A REGULAR DIET AND BOWEL TONES ARE ACTIVE IN ALL FOUR QUADRANTS. PATIENT WITH A POOR APPETITE AND HAD REFUSED BREAKFAST EARLIER THIS MORNING. IV SITE FLUSHED WITH 10 ML NORMAL SALINE AND IS SALINE LOCKED. IV DRESSING IS CLEAN, DRY, AND INTACT. PATIENT WITH A FLAT AFFECT. PATIENT IS ON ROOM AIR WITH THE CPOX AT BEDSIDE. LUNG SOUNDS ARE CLEAR IN THE UPPER LOBES AND DIMINISHED IN THE BASES BILATERALLY. ACCAPELLA AT BEDSIDE. SKIN WITH SCATTERED BRUISING NOTED AND SCAB TO THE LEFT ELBOW. PATIENT STATED NO FURTHER NEEDS AT THIS TIME. CALL LIGHT AND PERSONAL BELONGINGS ARE WITHIN REACH.
--- NOTE | 2025-05-11 09:49 | NUR ---
PT NOT AVAILABLE FOR VISIT. PROVIDED PRAYER.
--- NOTE | 2025-05-11 10:00 | NUR ---
REPORT GIVEN TO LIZA AT [facility] AT THIS TIME.
--- NOTE | 2025-05-11 10:26 | NUR ---
LIZA AT [facility] CALLED REGARDING DISCHARGE VITALS PER REQUEST.
--- NOTE | 2025-05-11 10:29 | NUR ---
FAXED CHART TO [facility]. NO FUTHER NEEDS. WC VAN AT 1100.
== END 2025-05-11 10:35 | DRG 184 ==
LOC: ED 07:30 → MS 07:32
PROVIDERS: Emergency Medicine; ADMIT Family Medicine; ATTEND Family Medicine
DX: S22.42XA Multiple fractures of ribs, left side, initial encounter for closed fracture (principal); E87.1 Hypo-osmolality and hyponatremia; J98.11 Atelectasis; S92.322A Displaced fracture of second metatarsal bone, left foot, initial encounter for closed fracture; I10 Essential (primary) hypertension; S92.332A Displaced fracture of third metatarsal bone, left foot, initial encounter for closed fracture; J44.9 Chronic obstructive pulmonary disease, unspecified; S92.352A Displaced fracture of fifth metatarsal bone, left foot, initial encounter for closed fracture; S50.02XA Contusion of left elbow, initial encounter; K59.03 Drug induced constipation; Z98.890 Other specified postprocedural states; Z90.49 Acquired absence of other specified parts of digestive tract; Z95.5 Presence of coronary angioplasty implant and graft; Z88.8 Allergy status to other drugs, medicaments and biological substances; Z88.5 Allergy status to narcotic agent; Z79.899 Other long term (current) drug therapy; Z79.82 Long term (current) use of aspirin; Z86.79 Personal history of other diseases of the circulatory system; Z87.891 Personal history of nicotine dependence; W10.8XXA Fall (on) (from) other stairs and steps, initial encounter
CPT/HCPCS: 36415; 70450; 71250; 72125; 73080; 73630; 74176; 80048; 80053; 83735; 84100; 85025; 93005; 93010; 94640; 94667; 94668; 94762; 94799; 97110; 97116; 97162; 97166; 97530; 97535; A9270; G0480; J1171; J1650; J1885; J2405; J7030